=== PATIENT | male | born 1960 | race Caucasian/White ===

== ENCOUNTER 2017-01-18 08:47 | Emergency (ER) | payer BC ==
[2017-01-18] MEDS ORDERED: NORMAL SALINE 1,000 ML IV ONE (09:34)
[2017-01-18 09:46] LABS: Hematocrit 48.3 % (42.0-52.0); Mean Cell Volume 87.8 fl (78-100); Mean Corpuscular Hemoglobin 30.9 pg (27-31); Mean Corpuscular Hgb Conc 35.2 g/dl (32-36); Mean Platelet Volume 9.8 fl (6.0-9.5); Platelet Count 365 K/mm3 (150-450); Red Cell Distribution Width 12.7 % (11.5-14.0); White Blood Count 8.1 K/mm3 (4.0-10.5)
[2017-01-18 09:55] LABS: Total Cells Counted 100
[2017-01-18 09:57] LABS: Atypical (Reactive) Lymph 3 % (0-2); Eosinophil 4 % (0-3); Lymphocyte 7 % (20-51); Monocyte 4 % (0-9); Neutrophil 82 % (42-75); Neutrophil # 6.6 K/mm3 (1.3-6.0); Platelet Estimate Normal (NORMAL); RBC Morphology Normal (NORMAL)
[2017-01-18 10:01] LABS: Albumin * 3.9 gm/dl (3.4-5.0); Anion Gap 14.6 mmol/L (6.8-13.8); BUN/Creatinine Ratio 11.3 (9.0-21.6); Bilirubin, Total 0.7 mg/dL (0.0-1.1); Ca. Corrected For Albumin 8.5 mg/dL (8.4-10.2); Calcium * 8.7 mg/dL (7.9-10.9); Carbon Dioxide 21.4 mmol/L (24-32.6); Total Protein 7.5 gm/dL (6.2-8.2)
[2017-01-18 10:20] VITALS: BP 154/88
--- NOTE | 2017-01-18 10:33 | ERNOTE ---
Abdominal HPI - General Chief Complaint: Abdominal Pain Time Seen by Provider: 01/18/17 09:29 Source: patient Exam Limitations: no limitations - Immun/Allergies/Home Medications Immunizatons: IMMUNIZATION HX Immunizations Up to Date No History of Influenza Vaccine No Hx Pneumococcal Vaccination No Allergies/Adverse Reactions: Allergies No Known Allergies Allergy (Verified 01/18/17 09:12) Home Medications: HOME MEDICATIONS NK [No Home Medication] 01/18/17 [Last Taken Unknown] - History of Present Illness Narrative: Patient has not had the best diet in the past week and he has been eating a lot of fast foods. He complains of some pressure in the upper abdominal region denies any fevers nausea vomiting diarrhea he does admit to having been constipated. Stress involving the health of his mother recently. Review of Systems - Review of Systems Constitutional: Present: no symptoms reported EYE: Present: no symptoms reported ENT: Present: no symptoms reported Respiratory: Present: no symptoms reported Cardiology: Present: no symptoms reported Gastrointestinal/Abdominal: Present: See HPI Genitourinary: Present: no symptoms reported Musculoskeletal: Present: no symptoms reported Skin: Present: no symptoms reported - Patient's Past Medical History Patient History - Medical: No pertinent hx Patient History - Cardiac/Respiratory: No pertinent hx Patient History - Cancer: No Hx of Cancer Patient History - Surgical Procedures: Hernia Repair Patient History - Other: None - Social History Living Situations: home Psych History: No pertinent hx Alcohol Use: none Drug Use: none - Immunizations Immunizations Up to Date: No Hx Pneumococcal Vaccination: No History of Influenza Vaccine: No Physical Exam - Physical Exam General Appearance: Present: wd/wn, alert, no apparent distress Head Exam: Present: normal inspection, no evidence of injury Eye Exam: Normal inspection: bilateral, PERRL: bilateral, EOMI: bilateral Ears, Nose, Throat: Present: normal ENT inspection Respiratory: Present: no respiratory distress, normal breath sounds, no accessory muscle use, chest nontender, lungs clear. Absent: chest tenderness Cardiovascular/Chest: Present: regular rate, rhythm, no murmur, normal peripheral pulses Gastrointestinal/Abdominal: Present: normal bowel sounds, nontender, nondistended, soft, no organomegaly ED Progress - Results and Orders Patient's Lab Results:: I have reviewed the patient's lab results. - Vital Signs Patient's Vital Signs:: I have reviewed the patient's vital signs. Vital Signs: Vital Signs 01/18/17 01/18/17 09:08 10:19 Temperature 36.8 C Pulse Rate 102 H 97 Respiratory 12 12 Rate Blood Pressure 155/91 154/88 O2 Sat by Pulse 97 97 Oximetry - X-Ray X-Ray #1 X-Ray: abdomen - Progress/Reassessment Chief Complaint: Abdominal Pain Plan - Plan Plan: Patient's blood count is completely within normal limits his x-ray reveals a large amount of stool patient has constipation and will be treated accordingly. Departure Clinical Impression: Constipation Qualifiers: Constipation type: unspecified constipation type Qualified Code(s): K59.00 - Constipation, unspecified - Departure Disposition: Home self-care Condition: Good Instructions: Constipation, Adult, [id number] Referrals: Chuck Morris MD [Primary Care Provider] -
== END 2017-01-18 10:41 | disposition home or self-care (01) ==
LOC: ER 08:47
DX: K59.00 Constipation, unspecified (principal)